=== PATIENT | female | born 1960 | race Caucasian/White ===

== ENCOUNTER 2020-10-22 11:00 | Outpatient (RCR) | payer MEDICAID, SELFPAY | END 2020-10-22 23:59 | disposition home or self-care (01) | LOC: CR 11:00 | PROVIDERS: Visit Provider Family Medicine | DX: Z51.89 Encounter for other specified aftercare (principal); Z98.61 Coronary angioplasty status | CPT/HCPCS: S9472 ==

== ENCOUNTER 2020-11-21 11:00 | Outpatient (RCR) | payer MEDICAID, SELFPAY | END 2020-11-22 23:59 | disposition home or self-care (01) | LOC: CR 11:00 | PROVIDERS: Visit Provider Family Medicine | DX: Z51.89 Encounter for other specified aftercare (principal); Z98.61 Coronary angioplasty status | CPT/HCPCS: S9472 ==

== ENCOUNTER 2020-12-22 11:00 | Outpatient (RCR) | payer MEDICAID, SELFPAY | END 2020-12-23 23:59 | disposition home or self-care (01) | LOC: CR 11:00 | PROVIDERS: Visit Provider Family Medicine | DX: Z51.89 Encounter for other specified aftercare (principal); Z95.5 Presence of coronary angioplasty implant and graft | CPT/HCPCS: S9472 ==

== ENCOUNTER 2020-12-26 11:00 | Outpatient (RCR) | payer MEDICAID, SELFPAY | END 2021-01-22 23:59 | disposition home or self-care (01) | LOC: CR 11:00 | PROVIDERS: Visit Provider Family Medicine | DX: Z51.89 Encounter for other specified aftercare (principal); Z95.5 Presence of coronary angioplasty implant and graft | CPT/HCPCS: S9472 ==

== ENCOUNTER 2022-11-23 01:38 | Outpatient (CLI) | payer MEDICARE, MEDICAID, SELFPAY ==
--- NOTE | 2022-11-23 10:30 | DI.US_ITS ---
APPROVED REPORT EXAM: Comprehensive 2D, Doppler, and color-flow Echocardiogram Patient Location: Out-Patient Inverter And Clipper: Luh Isaac RDCS (AE) Indications: Heart failure with reduced EF Other Information Study Quality: Adequate Conclusion Left ventricle is borderline dilated. Wall thickness is normal. Estimated ejection fraction is 35 t o 40%. There is global hypokinesis Normal right ventricular size and systolic function Both atria are normal in size There are no structural valvular abnormalities There is mild mitral regurgitation There is trace tricuspid regurgitation. Right ventricular systolic pressure could not be estimated Wall motion Left Ventricle Left ventricle is borderline Dilated. Left ventricular systolic function is moderately decreased. The re is normal left ventricular wall thickness. There is global hypokinesis of the left ventricle. Ther e is no ventricular septal defect visualized. LVEF is 38%. Right Ventricle The right ventricle is normal size. Right ventricular systolic function is grossly normal. Atria The left atrium size is normal. The right atrium size is normal. The interatrial septum is intact wit h no evidence for an atrial septal defect. Aortic Valve The aortic valve is normal in structure. Aortic valve is trileaflet. There is no aortic valvular sten osis. No aortic regurgitation is present. Mitral Valve The mitral valve is normal in structure. No evidence of mitral valve stenosis. Mild mitral regurgit ation. Tricuspid Valve The tricuspid valve is normal in structure. There is no tricuspid valve stenosis. Trace tricuspid reg urgitation. Unable to assess PA pressure. Pulmonic Valve The pulmonary valve is normal in structure. There is no pulmonic valvular stenosis. There is no pulmo rios valvular regurgitation. Great Vessels The aortic root is normal in size. The ascending aorta is normal in size. Aortic arch is not well vis ualized. IVC is normal in size and collapses >50% with inspiration. Pericardium There is no pericardial effusion. 2D Dimensions IVSD d PLAX 0.55 cm F: 0.6-1.0 LV Vol A2C d MOD 98.5 mL LVPW d PLAX 0.59 cm F: 0.6 - 1.0 LV Vol A4C d MOD 115.4 mL LVID d PLAX 5.86 cm F: 3.8 - 5.2 LA vol/ BSA A2C s A-L 13.1 mL/m2 LVDs 4.75 cm F: 2.2 - 3.5 LA vol/ BSA A4C s A-L 16.4 mL/m2 Ao Root d 2.70 cm F: 2.7 - 3.3 LA Vol/ BSA Biplane s A-L 17.3 mL/m2 RA Area A4C 10.51 cm2 LA Area A4C s MOD 13.75 cm2 RA Vol/ BSA A4C s A-L 13.5 mL/m2 LA Area A2C s MOD 10.40 cm2 Ao Asc Diam d 2.98 cm F: 2.3 - 3.1 LV EF A4C MOD 35.8 % LV EF Teichholz 38.3 % LV EF A2C MOD 39.8 % LVEF ([facility]) 38.03 % F: 54 - 74 LV EF Biplane MOD 38.0 % LV Volume 82.70 mL F: 46 - 106 SV 41.56 mL LV Volume Index 42.41 mL/m2 F: 29 - 61 SV Index 21.34 mL/m2 LV Vol Biplane MOD 109.3 mL FS 18.85 % M-Mode TAPSE 1.81 cm (M/F) >1.7 LV Diastology MV E' medial 0.061 (>0.07 m/s) E/A Ratio 0.9 LV E/e MED 10.75 (<14) MV E Vmax 0.66 (0.4-1.3 m/s) MV E' lateral 0.073 (>0.1 m/s) MV A Vmax 0.75 (0.4-1.3 m/s) LV E/e LAT 8.95 (<14) MV E/A Ratio 0.84 MV E/E' medial 10.77 MV E/E' lateral 8.97 Aortic Valve LVOT Area 3.29 cm2 AoV Area Vmax 2.48 cm2 LVOT Vmax 1.06 m/s AoV Area/ BSA (Vmax) 1.27 cm2/m2 LVOT Mean Cliff. 0.65 m/s ELIAN Mean Cliff. 2.32 cm2 LVOT Peak Grad 4.5 mmHg ELIAN Mean Cliff. Index 1.19 cm2/m2 LVOT Mean Grad 2.0 mmHg LVOT VTI 0.221 m LVOT Diam s 2.00 cm AoV Vmax 1.40 m/s Velocity Ratio 0.76 AoV Mean Cliff. 0.92 m/s AoV Peak Grad 7.9 mmHg LVOT SV 72.75 mL AoV Mean Grad 4.0 mmHg AoV VTI 0.257 m AoV Area VTI 2.84 cm2 AoV Area/ BSA (VTI) 1.46 cm/m2 Mitral Valve MV DT 247 (160-240 msec) MV PHT 72 msec MV Area PHT 3.07 cm2 MV VTI 0.259 m MV Area VTI 2.80 (4.0-6.0 cm2) Pulmonary Valve PV Vmax 0.82 (0.5-1.5 m/s) RVOT Peak Gr. 1.48 mmHg PV Peak Grad 2.7 mmHg RVOT Mean Gr. 0.75 mmHg PV Mean Grad 1.5 mmHg RVOT VTI 0.123 m PV VTI 0.161 m RVOT Vmax 0.61 m/s
== END 2022-11-23 01:58 ==
PROVIDERS: Visit Provider Nurse Practitioner Adult Health
DX: I50.30 Unspecified diastolic (congestive) heart failure (principal)
CPT/HCPCS: 93306

== ENCOUNTER → 2023-09-20 00:21 | Outpatient (CLI) | payer MEDICARE, SELFPAY ==
--- NOTE | 2023-09-20 | DI.US_ITS ---
APPROVED REPORT EXAM: Comprehensive 2D, Doppler, and color-flow Echocardiogram Patient Location: Out-Patient Onshore Diver: Enid Ervin RT (R) (CT) [facility] Rhythm: NSR Indications: Heart Failure with reduced ejection fraction. Conclusion Mildly dilated left ventricle. Normal left ventricular wall thickness. Ejection fraction is 35 to 4 0% with global hypokinesis Normal right ventricular size and function Both atria are normal in size There are no structural valvular abnormalities There is mild mitral regurgitation Wall motion Left Ventricle Left ventricle is mildly dilated. Left ventricular systolic function is mildly decreased. There is no rmal left ventricular wall thickness. There is global hypokinesia. Left ventricular filling pattern i s normal for age. There is no ventricular septal defect visualized. LVEF is 35-40%. Prior echo, 11/23, EF = 35-40% with global hypokinesis. Right Ventricle The right ventricle is normal size. The right ventricular systolic function is normal. There is delfina l right ventricular wall thickness. Moderator band is seen in the right ventricle. Atria The left atrium size is normal. The right atrium size is normal. The interatrial septum is intact wit h no evidence for an atrial septal defect. Aortic Valve Aortic valve is trileaflet. Aortic valve leaflets are mildly thickened. There is no aortic valvular s tenosis. No aortic regurgitation is present. Mitral Valve The mitral valve is normal in structure. No evidence of mitral valve stenosis. Mild mitral regurgitat ion. Tricuspid Valve The tricuspid valve is normal in structure. There is no tricuspid valve stenosis. Trace tricuspid reg urgitation. Pulmonic Valve Pulmonic valve is grossly normal in structure. There is no pulmonic valvular stenosis. Trace pulmonic regurgitation. Great Vessels The aortic root is normal in size. The pulmonary artery is normal. The ascending aorta is normal in s ize. Aortic arch is normal in caliber. IVC is normal in size and collapses >50% with inspiration. Pericardium Prominent anterior epicardial fat pad is present. There is no pleural effusion. 2D Dimensions IVSD d PLAX 0.67 cm F: 0.6-1.0 Ao Root d 2.75 cm F: 2.7 - 3.3 LVPW d PLAX 0.71 cm F: 0.6 - 1.0 Ao Asc Diam d 2.74 cm F: 2.3 - 3.1 LVID d PLAX 5.78 cm F: 3.8 - 5.2 Prox Ao Arch 2.7 cm LVDs 4.96 cm F: 2.2 - 3.5 IVC Diam exp d SLAX 1.4 cm LV EF Teichholz 29.8 % FS 14.20 % LV EDV (Teich) 165.1 mL LV ESV (Teich) 115.9 mL M-Mode TAPSE 2.48 cm (M/F) >1.7 Auto EF LV EDV A4C 94.2 mL LV EDV A2C 131.4 mL LV EDV BP 111.7 mL LV ESV A4C 58.6 mL LV ESV A2C 76.4 mL LV ESV BP 67.1 mL LVEF(%) A4C 37.8 % LVEF(%) A2C 41.9 % LVEF(%) BP 40.0 % LV SV A4C 35.6 ml LV SV A2C 55.0 ml LV SV BP 44.7 ml LV CO A4C 2.7 L/min LV CO A2C 3.8 L/min LV CO BP 3.3 L/min HR A4C 76.28 BPM HR A2C 69.50 BPM LV EDV Index (BP) LV Volumes - Method of Disks ([facility]) Single Plane 2D LV Volumes Biplane 2D LV Volumes LV EDV A4C 103.3 mL LV EDV BP 118.69 mL F: 46 - 106 LV ESV A4C 60.8 mL LV ESV BP 73.6 mL LVEF(%) A4C 41.1 % LVEF(%) BP 38.03 % F: 54 - 74 LV EDV A2C 134.7 mL LV EDV BP Index 59.94 mL/m2 F: 29 - 61 LV ESV A2C 84.7 mL SV BP LVEF(%) A2C 37.1 % SV Index LV Strain Long Pk Overal Avg (s) 12.44 LA Volume LA Length A4C 4.6 cm LA Length A2C 4.2 cm LA Area A4C s 9.66 cm2 LA Area A2C s 10.38 cm2 LA Vol A4C A-L 17.10 mL LA Vol A2C A-L 21.95 mL LA Vol Biplane A-L 20.4 mL LA Vol/BSA A4C A-L LA Vol/BSA A2C A-L LA Vol/BSA BP A-L 10.3 mL/m2 LA Vol A4C MOD 16.6 mL LA Vol A2C MOD 21.0 mL LA Vol BP MOD 19.6 mL LV Diastology MV E' medial 0.054 (>0.07 m/s) MV E Vmax 0.65 (0.4-1.3 m/s) MV E/E' MED 11.93 (<14) MV A Vmax 0.85 (0.4-1.3 m/s) MV E' lateral 0.085 (>0.1 m/s) E/A Ratio 0.8 MV E/E' LAT 7.64 (<14) MV E' Average 0.070 m/s MV E/E'(average) 9.32 Aortic Valve LVOT Vmax 1.04 m/s LVOT Peak Grad 4.4 mmHg LVOT VTI 0.196 m LVOT Mean Grad 2.0 mmHg Mitral Valve MV DT 144 (160-240 msec) Pulm Vein s 0.46 m/s Pulm Vein d 0.42 m/s Pulm Vein a 0.45 m/s Pulmonary Valve RVOT Vmax 0.58 m/s RVOT Peak Gr. 1.4 mmHg RVOT VTI 0.116 m RVOT Mean Gr. 0.7 mmHg Tricuspid Valve RA Pressure 3.00 mmHg TV S' 0.11 m/s
== END ==
PROVIDERS: Visit Provider Physician Assistant
DX: I50.20 Unspecified systolic (congestive) heart failure (principal)
CPT/HCPCS: 93306

== ENCOUNTER 2023-09-20 14:05 | Outpatient (CLI) | payer MEDICARE, SELFPAY ==
[2023-09-20 13:10] LABS: Abs Immature Grans 0.08 10^3/uL (0.0-0.06); Absolute Basophil Count 0.08 10^3/uL (0.0-0.2); Absolute Eosinophil Count 0.17 10^3/uL (0.0-0.7); Absolute Lymphocyte Count 2.65 10^3/uL (1.2-3.4); Absolute Monocyte Count 1.42 10^3/uL (0.1-0.8); Basophils % 0.6 %; Eosinophils % 1.2 %; HGB 12.6 g/dL (11.2-15.7); Immature Grans % 0.6 %; MCH 25.9 pg (27.0-33.0); MCHC 30.7 % (32.0-36.0); MCV 84 fL (80-95); MPV 9.8 fL (8.0-11.0); Monocytes % 10.2 %; Neutrophils % 68.4 %; Platelet Count 438 10^3/uL (130-400); RBC 4.87 10^6/uL (3.93-5.22); RDW 15.1 % (11.7-14.6); RDW-SD 45.9 fL; WBC 13.97 10^3/uL (4.4-10.8)
[2023-09-20 13:12] LABS: Absolute Neutrophil Count 9.56 10^3/uL (1.2-6.7)
[2023-09-20 14:16] LABS: ALT 21 U/L (14-59); AST 11 U/L (15-37); Albumin 3.7 g/dL (3.4-5.0); Alkaline Phosphatase 108 U/L (46-116); Anion Gap 7.6 mmol/L (3-11); BUN 9 mg/dL (7-18); Bilirubin, Total 0.7 mg/dL (0.2-1.0); CO2 32.4 mmol/L (21.0-32.0); CREATININE 0.9 mg/dL (0.55-1.02); Calcium 9.2 mg/dL (8.5-10.1); Chloride 97 mmol/L (98-107); Estimated GFR 72.73 (mL/min/1.73m2); Glucose 95 mg/dL (74-106); NT-proBNP 195 pg/mL (<300); Potassium 3.7 mmol/L (3.5-5.1); Sodium 137 mmol/L (136-145)
== END 2023-09-20 14:06 | disposition home or self-care (01) ==
LOC: LBO 14:05
PROVIDERS: Visit Provider Physician Assistant
DX: I50.20 Unspecified systolic (congestive) heart failure (principal)
CPT/HCPCS: 36415; 80053; 93306; 83880; 85025